=== PATIENT | male | born 1960 | race Caucasian/White ===

== ENCOUNTER 2020-05-31 17:19 | Inpatient (IN) | payer MEDICARE, OTHER ==
[~2020-05-31] VITALS: Ht 185.4 cm; Wt 99.8 kg
[2020-05-31] MEDS ORDERED: INSU100I4 SQ (17:44)
[2020-05-31] MEDS ORDERED: METF-440 PO (17:44)
[2020-05-31] MEDS ORDERED: ASPI-1169 PO (17:44)
[2020-05-31] MEDS ORDERED: INSU100I26 SQ (17:44)
[2020-05-31] MEDS ORDERED: RANO500T6 PO (17:44)
[2020-05-31] MEDS ORDERED: ROSU20TA32 PO (17:44)
[2020-05-31] MEDS ORDERED: LISI10TA29 PO (17:44)
[2020-05-31] MEDS ORDERED: CLOP75TA15 PO (17:44)
[2020-05-31] MEDS ORDERED: CALC500T52 PO (17:44)
[2020-05-31 18:04] LABS: BASOPHILS % (AUTO) 0.3 % (0.0-2.0); EOSINOPHILS % (AUTO) 0.1 % (0.0-6.0); HEMATOCRIT 41 % (39-51); HEMOGLOBIN 14.1 g/dL (13.5-17.5); LYMPHOCYTES % (AUTO) 10.2 % (20.0-44.0); MEAN CORPUSCULAR HGB CONC 34 g/dl (31.0-36.0); MEAN CORPUSCULAR VOLUME 86 fL (80-96); MONOCYTES # (AUTO) 0.7 /CMM (0.1-1.30); MONOCYTES % (AUTO) 6.8 % (2.0-12.0); NEUTROPHILS % (AUTO) 82.6 % (43.0-81.0); PLATELET COUNT (AUTO) 279 /CMM (150-450); WHITE BLOOD COUNT (AUTO) 9.7 K/uL (4.3-11.0)
[2020-05-31 18:36] LABS: BILIRUBIN,URINE Negative (NEGATIVE); COLOR,URINE YELLOW (YELLOW); LEUKOCYTE ESTERASE ,URINE Negative (NEGATIVE); NITRITE, URINE Positive (NEGATIVE); PROTEIN,URINE Negative (NEGATIVE); UGLUCOSE 500 MG/DL mg/dL (NEGATIVE); UROBILINOGEN,URINE 0.2 EU/dL (0.2)
[2020-05-31 18:44] LABS: ALANINE AMINOTRANSFERASE 33 U/L (12-78); ALBUMIN 3.6 g/dL (3.4-5.0); ALCOHOL, BLOOD < 3 mg/dL (0-0); ALKALINE PHOSPHATASE 112 U/L (46-116); ASPARTATE AMINOTRANSFERASE 43 U/L (15-37); BILIRUBIN,DIRECT 0.2 mg/dL (0.0-0.2); BILIRUBIN,TOTAL 0.8 mg/dL (0.2-1.0); CALCIUM, SERUM 8.9 mg/dL (8.5-10.1); CARBON DIOXIDE 26 mmol/L (21-32); CHLORIDE 100 mmol/L (98-107); POTASSIUM 4.2 mmol/L (3.5-5.1); SODIUM SERUM 135 mmol/L (136-145); TOTAL PROTEIN, SERUM 7.9 g/dL (6.4-8.2); UREA NITROGEN, BLOOD 23 mg/dL (7-18)
[2020-05-31 18:44] LABS: BACTERIA,URINE 2+ /HPF (None Seen); SQUAMOUS EPITHELIAL CELL,UR Few /HPF (None Seen)
[2020-05-31 18:45] LABS: ACETAMINOPHEN < 2 ug/ml (10-30)
[2020-05-31 18:46] LABS: GLUCOSE 433 mg/dL (74-106)
[2020-05-31] MEDS ORDERED: INSULIN REGULAR, HUMAN 100 UNIT/ML 10 ML VIAL ONE (18:59)
[2020-05-31] MEDS ORDERED: CEFTRIAXONE 1GM BAG (ER ONLY) 50 ML IV ONE (18:59)
[2020-05-31] MEDS ORDERED: INSULIN REGULAR, HUMAN 100 UNIT/ML 10 ML VIAL SQ ONE (19:00)
[2020-05-31] MEDS ORDERED: IV NS 0.9% 1,000 ML BAG IV ONE (19:00)
[2020-05-31] MEDS ORDERED: CEFTRIAXONE 1 G in IV D5W 50 ML IV ONE (19:00)
[2020-05-31] MEDS ORDERED: ENALAPRILAT INJ (1.25 MG/ML) 1.25 MG/ML VIAL IV ONE (21:06)
[2020-05-31] MEDS ORDERED: ENALAPRILAT INJ (1.25 MG/ML) 1.25 MG/ML VIAL IV PRN (21:30)
[2020-05-31] MEDS ORDERED: METOPROLOL TARTRATE INJ 5 MG/5 ML AMPUL ONE (22:14)
[2020-05-31] MEDS ORDERED: METOPROLOL TARTRATE INJ 5 MG/5 ML AMPUL IVP PRN (22:30)
[2020-05-31] MEDS ORDERED: ACETAMINOPHEN 325 MG TABLET PO PRN (23:30)
[2020-05-31] MEDS ORDERED: clonazePAM 0.5 MG TABLET PO PRN (23:30)
[2020-05-31] MEDS ORDERED: MAGNESIUM HYDROXIDE 30 ML UDC PO PRN (23:30)
[2020-05-31] MEDS ORDERED: BLOOD SUGAR DIAGNOSTIC 1 EACH STRIP IN ONE (23:30)
[2020-05-31] MEDS ORDERED: MAG HYDROX/AL HYDROX/SIMETH 30 ML UDC PO PRN (23:30)
[2020-06-01] MEDS ORDERED: LORAZEPAM INJ 2 MG/ML VIAL IM ONE ×4 (04:35→07:00)
[2020-06-01] MEDS ORDERED: OLANZAPINE 10 MG VIAL IM ONE ×3 (04:36→04:48)
[2020-06-01] MEDS ORDERED: OLANZAPINE 10 MG VIAL IM STA (04:52)
[2020-06-01] MEDS ORDERED: LORAZEPAM INJ 2 MG/ML VIAL IM STA (04:52)
[2020-06-01] MEDS ORDERED: HALOPERIDOL LACTATE INJ 5 MG/ML VIAL IM ONE (07:00)
[2020-06-01] MEDS ORDERED: diphenhydrAMINE HCL 50 MG/ML VIAL IM ONE (07:00)
[2020-06-01 08:00] VITALS: BP 118/81
[2020-06-01] MEDS: METFORMIN 500 MG TABLET PO SCH ×2 (08:00→17:23)
[2020-06-01] MEDS: RANOLAZINE 500 MG TAB.ER.12H PO SCH ×2 (09:00→21:00)
[2020-06-01] MEDS: ASPIRIN 81 MG TAB.CHEW PO SCH ×2 (13:00→17:20)
[2020-06-01] MEDS: DIVALPROEX SODIUM 125 MG CAP.SPRINK PO SCH ×2 (13:00→17:20)
[2020-06-01 17:01] VITALS: BP 126/66
[2020-06-01] MEDS: CLOPIDOGREL BISULFATE 75 MG TABLET PO SCH (17:20)
[2020-06-01] MEDS: CALCIUM CARBONATE (1250) 500 MG TABLET PO SCH (17:20)
[2020-06-01] MEDS: ATORVASTATIN 40 MG TABLET PO SCH (17:21)
[2020-06-01] MEDS: LISINOPRIL (10MG) 10 MG TABLET PO SCH (17:21)
[2020-06-01 20:06] VITALS: BP 140/74
[2020-06-01] MEDS: SULFAMETH/TRIMETH 800/160 MG 1 UDTAB TABLET PO SCH (21:00)
[2020-06-01] MEDS: OLANZAPINE ZYDIS 5 MG TAB.RAPDIS PO SCH (22:00)
[2020-06-02] MEDS ORDERED: LORAZEPAM INJ 2 MG/ML VIAL IM STA (02:59)
[2020-06-02] MEDS ORDERED: HALOPERIDOL LACTATE INJ 5 MG/ML VIAL IM STA (02:59)
[2020-06-02] MEDS ORDERED: diphenhydrAMINE HCL 50 MG/ML VIAL IM STA (02:59)
[2020-06-02 08:00] VITALS: BP 143/88
[2020-06-02] MEDS: SULFAMETH/TRIMETH 800/160 MG 1 UDTAB TABLET PO SCH ×2 (08:15→20:57)
[2020-06-02] MEDS: CLOPIDOGREL BISULFATE 75 MG TABLET PO SCH (08:15)
[2020-06-02] MEDS: DIVALPROEX SODIUM 125 MG CAP.SPRINK PO SCH ×3 (08:15→17:00)
[2020-06-02] MEDS: METFORMIN 500 MG TABLET PO SCH ×2 (08:15→18:00)
[2020-06-02] MEDS: CALCIUM CARBONATE (1250) 500 MG TABLET PO SCH (08:15)
[2020-06-02] MEDS: clonazePAM 0.5 MG TABLET PO PRN ×2 (08:15→21:06)
[2020-06-02] MEDS: LISINOPRIL (10MG) 10 MG TABLET PO SCH (08:16)
[2020-06-02] MEDS: RANOLAZINE 500 MG TAB.ER.12H PO SCH ×2 (08:18→20:57)
[2020-06-02] MEDS: OLANZAPINE ZYDIS 5 MG TAB.RAPDIS PO SCH (08:18)
[2020-06-02] MEDS: HALOPERIDOL 5 MG TABLET PO SCH (17:00)
[2020-06-02] MEDS: ATORVASTATIN 40 MG TABLET PO SCH (18:00)
[2020-06-02 18:56] VITALS: BP 125/73
[2020-06-02 20:28] VITALS: BP_SYST 134; BP_SYST 143; BP_DIAS 88; BP_DIAS 93
[2020-06-03] MEDS: clonazePAM 0.5 MG TABLET PO PRN (04:46)
[2020-06-03 08:00] VITALS: BP 116/65
[2020-06-03] MEDS: METFORMIN 500 MG TABLET PO SCH ×2 (08:45→18:16)
[2020-06-03] MEDS: RANOLAZINE 500 MG TAB.ER.12H PO SCH ×2 (08:45→21:18)
[2020-06-03] MEDS: HALOPERIDOL 5 MG TABLET PO SCH ×2 (08:45→16:55)
[2020-06-03] MEDS: DIVALPROEX SODIUM 125 MG CAP.SPRINK PO SCH ×3 (08:45→16:55)
[2020-06-03] MEDS: LISINOPRIL (10MG) 10 MG TABLET PO SCH (08:46)
[2020-06-03] MEDS: CLOPIDOGREL BISULFATE 75 MG TABLET PO SCH (08:46)
[2020-06-03] MEDS: SULFAMETH/TRIMETH 800/160 MG 1 UDTAB TABLET PO SCH ×2 (08:46→21:18)
[2020-06-03] MEDS: CALCIUM CARBONATE (1250) 500 MG TABLET PO SCH (08:51)
[2020-06-03] MEDS: ASPIRIN 81 MG TAB.CHEW PO SCH (08:51)
[2020-06-03 16:00] VITALS: BP 130/86
[2020-06-03] MEDS: ATORVASTATIN 40 MG TABLET PO SCH (18:16)
[2020-06-03 20:00] VITALS: BP 152/77
[2020-06-04] MEDS ORDERED: Z GUARD REMEDY 2 OZ OINT TP PRN (06:00)
[2020-06-04 08:00] VITALS: BP 116/78
[2020-06-04] MEDS: DIVALPROEX SODIUM 125 MG CAP.SPRINK PO SCH ×3 (08:31→17:19)
[2020-06-04] MEDS: RANOLAZINE 500 MG TAB.ER.12H PO SCH ×2 (08:31→21:24)
[2020-06-04] MEDS: SULFAMETH/TRIMETH 800/160 MG 1 UDTAB TABLET PO SCH ×2 (08:31→21:24)
[2020-06-04] MEDS: METFORMIN 500 MG TABLET PO SCH ×2 (08:31→18:23)
[2020-06-04] MEDS: ASPIRIN 81 MG TAB.CHEW PO SCH (08:31)
[2020-06-04] MEDS: CLOPIDOGREL BISULFATE 75 MG TABLET PO SCH (08:32)
[2020-06-04] MEDS: CALCIUM CARBONATE (1250) 500 MG TABLET PO SCH (08:32)
[2020-06-04] MEDS: HALOPERIDOL 5 MG TABLET PO SCH ×2 (08:32→17:19)
[2020-06-04] MEDS: LISINOPRIL (10MG) 10 MG TABLET PO SCH (08:32)
[2020-06-04 10:13] LABS: ALBUMIN 3.5 g/dL (3.4-5.0); BILIRUBIN,TOTAL 0.6 mg/dL (0.2-1.0); CALCIUM, SERUM 9.9 mg/dL (8.5-10.1); CREATININE 1.1 mg/dL (0.6-1.3); POTASSIUM 3.8 mmol/L (3.5-5.1); TOTAL PROTEIN, SERUM 7.5 g/dL (6.4-8.2)
[2020-06-04] MEDS ORDERED: DEXTROSE 50%-WATER 50 ML DISP.SYRIN IV PRN (11:30)
[2020-06-04] MEDS: BLOOD SUGAR DIAGNOSTIC 1 EACH STRIP VI SCH ×3 (12:36→21:30)
[2020-06-04] MEDS: INSULIN REGULAR, HUMAN 100 UNIT/ML 3 ML VIAL SQ PRN ×2 (12:41→17:37)
[2020-06-04 16:00] VITALS: BP 143/73
[2020-06-04] MEDS ORDERED: HALOPERIDOL DECANOATE IM 100 MG/ML AMPUL IM ONE (18:00)
[2020-06-04] MEDS: ATORVASTATIN 40 MG TABLET PO SCH (18:23)
[2020-06-04 20:06] VITALS: BP 163/88
[2020-06-04] MEDS: *INSULIN REGULAR(HUMULIN R)HUM 100 UNIT/ML VIAL SQ PRN (21:39)
[2020-06-05] MEDS: clonazePAM 0.5 MG TABLET PO PRN (00:34)
[2020-06-05 08:00] VITALS: BP 119/62
[2020-06-05] MEDS: BLOOD SUGAR DIAGNOSTIC 1 EACH STRIP VI SCH ×4 (08:03→21:53)
[2020-06-05] MEDS: INSULIN REGULAR, HUMAN 100 UNIT/ML 3 ML VIAL SQ PRN ×3 (08:15→17:04)
[2020-06-05] MEDS: CLOPIDOGREL BISULFATE 75 MG TABLET PO SCH (08:54)
[2020-06-05] MEDS: LISINOPRIL (10MG) 10 MG TABLET PO SCH (09:00)
[2020-06-05] MEDS: ASPIRIN 81 MG TAB.CHEW PO SCH (09:36)
[2020-06-05] MEDS: DIVALPROEX SODIUM 125 MG CAP.SPRINK PO SCH ×3 (09:36→16:43)
[2020-06-05] MEDS: RANOLAZINE 500 MG TAB.ER.12H PO SCH ×2 (09:36→21:49)
[2020-06-05] MEDS: SULFAMETH/TRIMETH 800/160 MG 1 UDTAB TABLET PO SCH ×2 (09:36→21:49)
[2020-06-05] MEDS: HALOPERIDOL 5 MG TABLET PO SCH ×2 (09:38→16:43)
[2020-06-05] MEDS: METFORMIN 500 MG TABLET PO SCH ×2 (09:39→17:17)
[2020-06-05] MEDS: CALCIUM CARBONATE (1250) 500 MG TABLET PO SCH (09:39)
[2020-06-05 16:00] VITALS: BP 100/59
[2020-06-05] MEDS: ATORVASTATIN 40 MG TABLET PO SCH (17:16)
[2020-06-05 20:00] VITALS: BP 134/78
[2020-06-05] MEDS: INSULIN GLARGINE, 100 UNIT/ML CARTRIDGE SQ SCH (21:52)
[2020-06-06] MEDS: BLOOD SUGAR DIAGNOSTIC 1 EACH STRIP VI SCH ×4 (07:30→22:59)
[2020-06-06 08:00] VITALS: BP 128/64
[2020-06-06] MEDS: HALOPERIDOL 5 MG TABLET PO SCH ×2 (08:49→16:53)
[2020-06-06] MEDS: METFORMIN 500 MG TABLET PO SCH ×2 (08:49→18:05)
[2020-06-06] MEDS: SULFAMETH/TRIMETH 800/160 MG 1 UDTAB TABLET PO SCH (08:49)
[2020-06-06] MEDS: ASPIRIN 81 MG TAB.CHEW PO SCH (08:49)
[2020-06-06] MEDS: CLOPIDOGREL BISULFATE 75 MG TABLET PO SCH (08:49)
[2020-06-06] MEDS: RANOLAZINE 500 MG TAB.ER.12H PO SCH ×2 (08:50→21:47)
[2020-06-06] MEDS: CALCIUM CARBONATE (1250) 500 MG TABLET PO SCH (08:50)
[2020-06-06] MEDS: LISINOPRIL (10MG) 10 MG TABLET PO SCH (08:50)
[2020-06-06] MEDS: DIVALPROEX SODIUM 125 MG CAP.SPRINK PO SCH ×3 (08:51→16:54)
[2020-06-06] MEDS: INSULIN REGULAR, HUMAN 100 UNIT/ML 3 ML VIAL SQ PRN ×2 (12:36→17:43)
[2020-06-06 16:00] VITALS: BP 117/58
[2020-06-06] MEDS: ATORVASTATIN 40 MG TABLET PO SCH (18:05)
[2020-06-06 20:55] VITALS: BP 118/79
[2020-06-06] MEDS: TEMAZEPAM 7.5 MG CAPSULE PO PRN (22:27)
[2020-06-06] MEDS: INSULIN GLARGINE, 100 UNIT/ML CARTRIDGE SQ SCH (23:04)
[2020-06-06] MEDS: *INSULIN REGULAR(HUMULIN R)HUM 100 UNIT/ML VIAL SQ PRN (23:11)
[2020-06-07 08:00] VITALS: BP 124/64
[2020-06-07] MEDS: INSULIN REGULAR, HUMAN 100 UNIT/ML 3 ML VIAL SQ PRN ×4 (08:05→22:17)
[2020-06-07] MEDS: BLOOD SUGAR DIAGNOSTIC 1 EACH STRIP VI SCH ×4 (08:17→22:12)
[2020-06-07] MEDS: ASPIRIN 81 MG TAB.CHEW PO SCH (08:50)
[2020-06-07] MEDS: RANOLAZINE 500 MG TAB.ER.12H PO SCH ×2 (08:50→20:24)
[2020-06-07] MEDS: HALOPERIDOL 5 MG TABLET PO SCH ×2 (08:50→16:22)
[2020-06-07] MEDS: CALCIUM CARBONATE (1250) 500 MG TABLET PO SCH (08:50)
[2020-06-07] MEDS: METFORMIN 500 MG TABLET PO SCH ×2 (08:51→17:37)
[2020-06-07] MEDS: DIVALPROEX SODIUM 125 MG CAP.SPRINK PO SCH ×3 (08:51→16:22)
[2020-06-07] MEDS: LISINOPRIL (10MG) 10 MG TABLET PO SCH (08:51)
[2020-06-07] MEDS: CLOPIDOGREL BISULFATE 75 MG TABLET PO SCH (08:54)
[2020-06-07 16:00] VITALS: BP 129/68
[2020-06-07] MEDS: ATORVASTATIN 40 MG TABLET PO SCH (17:37)
[2020-06-07 20:49] VITALS: BP 154/76
[2020-06-07] MEDS: INSULIN GLARGINE, 100 UNIT/ML CARTRIDGE SQ SCH (22:16)
[2020-06-07] MEDS: TEMAZEPAM 7.5 MG CAPSULE PO PRN (22:18)
[2020-06-08 08:00] VITALS: BP 124/62
[2020-06-08] MEDS: BLOOD SUGAR DIAGNOSTIC 1 EACH STRIP VI SCH ×4 (08:37→21:13)
[2020-06-08] MEDS: HALOPERIDOL 5 MG TABLET PO SCH ×2 (09:02→17:48)
[2020-06-08] MEDS: ASPIRIN 81 MG TAB.CHEW PO SCH (09:02)
[2020-06-08] MEDS: LISINOPRIL (10MG) 10 MG TABLET PO SCH (09:03)
[2020-06-08] MEDS: DIVALPROEX SODIUM 125 MG CAP.SPRINK PO SCH ×3 (09:03→17:48)
[2020-06-08] MEDS: CLOPIDOGREL BISULFATE 75 MG TABLET PO SCH (09:03)
[2020-06-08] MEDS: CALCIUM CARBONATE (1250) 500 MG TABLET PO SCH (09:03)
[2020-06-08] MEDS: METFORMIN 500 MG TABLET PO SCH ×2 (09:04→17:49)
[2020-06-08] MEDS: RANOLAZINE 500 MG TAB.ER.12H PO SCH ×2 (09:07→21:13)
[2020-06-08] MEDS: INSULIN REGULAR, HUMAN 100 UNIT/ML 3 ML VIAL SQ PRN ×3 (09:20→17:56)
[2020-06-08] MEDS: CADEXOMER IODINE 40 GM TUBE TP SCH (13:53)
[2020-06-08 16:00] VITALS: BP 116/67
[2020-06-08] MEDS: ATORVASTATIN 40 MG TABLET PO SCH (17:49)
[2020-06-08 20:44] VITALS: BP 100/62
[2020-06-08] MEDS: INSULIN GLARGINE, 100 UNIT/ML CARTRIDGE SQ SCH (21:15)
[2020-06-08] MEDS: *INSULIN REGULAR(HUMULIN R)HUM 100 UNIT/ML VIAL SQ PRN (21:17)
[2020-06-09 08:00] VITALS: BP 122/72
[2020-06-09] MEDS: BLOOD SUGAR DIAGNOSTIC 1 EACH STRIP VI SCH ×2 (08:09→11:57)
[2020-06-09] MEDS: INSULIN REGULAR, HUMAN 100 UNIT/ML 3 ML VIAL SQ PRN ×2 (08:17→11:59)
[2020-06-09] MEDS: METFORMIN 500 MG TABLET PO SCH (08:19)
[2020-06-09] MEDS: HALOPERIDOL 5 MG TABLET PO SCH (08:19)
[2020-06-09] MEDS: ASPIRIN 81 MG TAB.CHEW PO SCH (08:19)
[2020-06-09] MEDS: CALCIUM CARBONATE (1250) 500 MG TABLET PO SCH (08:20)
[2020-06-09] MEDS: CLOPIDOGREL BISULFATE 75 MG TABLET PO SCH (08:20)
[2020-06-09] MEDS: RANOLAZINE 500 MG TAB.ER.12H PO SCH (08:21)
[2020-06-09] MEDS: DIVALPROEX SODIUM 125 MG CAP.SPRINK PO SCH ×2 (08:21→12:10)
[2020-06-09] MEDS: LISINOPRIL (10MG) 10 MG TABLET PO SCH (08:21)
[2020-06-09] MEDS: CADEXOMER IODINE 40 GM TUBE TP SCH (08:49)
[2020-06-09 16:00] VITALS: BP 122/69
== END 2020-06-09 16:30 | DRG 885 ==
LOC: ER 17:45 → GPS 18:58
PROVIDERS: ADMIT Psychiatry & Neurology Psychiatry; ATTEND Registered Nurse
PROC: 0JBR3ZZ Excision of Left Foot Subcutaneous Tissue and Fascia, Percutaneous Approach (ICD-10-PCS; principal; 2020-06-02)
DX: F25.9 Schizoaffective disorder, unspecified (principal); E11.65 Type 2 diabetes mellitus with hyperglycemia; N39.0 Urinary tract infection, site not specified; Z79.82 Long term (current) use of aspirin; I10 Essential (primary) hypertension; Z89.422 Acquired absence of other left toe(s); E11.621 Type 2 diabetes mellitus with foot ulcer; L97.522 Non-pressure chronic ulcer of other part of left foot with fat layer exposed; E11.40 Type 2 diabetes mellitus with diabetic neuropathy, unspecified; E66.8 Other obesity; Z68.29 Body mass index [BMI] 29.0-29.9, adult; Z20.822 Contact with and (suspected) exposure to COVID-19; Z79.4 Long term (current) use of insulin; Z79.899 Other long term (current) drug therapy; Z79.02 Long term (current) use of antithrombotics/antiplatelets
CPT/HCPCS: 36415; 80048-TC; 80053-TC; 80061-TC; 80076-TC; 81001; 82962-TC; 85025-TC; 87081-TC; 87086-TC; 97116-TC; 97530-TC; G0480; J0696; J1200; J1630; J1631; J1815; J2060; J3490; J7030; J7060